=== PATIENT | male | born 1955 | race Caucasian/White ===

== ENCOUNTER 2024-06-22 10:26 | Emergency (ER) | payer BC, MEDICARE ==
[2024-06-22] MEDS: predniSONE 20 MG Tab PO ONE (11:17)
[2024-06-22] MEDS: Acetaminophen 500 MG Tab PO ONE (11:17)
[2024-06-22] MEDS: Take Home: Amoxicillin/Clavulanate K 875-125 MG Tab, 2 Tab Pack PO ONE (11:17)
[2024-06-22] MEDS: Oseltamivir 75 MG Cap PO ONE (11:18)
== END 2024-06-22 11:28 | disposition home or self-care (01) ==
LOC: VM.ED 10:26
DX: J10.1 Influenza due to other identified influenza virus with other respiratory manifestations (principal); Z88.6 Allergy status to analgesic agent; Z88.2 Allergy status to sulfonamides; Z88.8 Allergy status to other drugs, medicaments and biological substances
CPT/HCPCS: 87428-QW; 99283; 99284; A9270-GY; J7512